=== PATIENT | female | born 1960 | race Caucasian/White ===

== ENCOUNTER → 2017-05-26 | Outpatient (CLI) | payer OTHER ==
[~2017-05-26] VITALS: Ht 166.4 cm; Wt 121.6 kg
[~2017-05-26] MED LIST: CRANBERRY PO; CYMBALTA20 MG; DESYREL100 MG PO; ESCITALOPRAM OX20 MG PO; FLONASE16 G1 BOTH NARES; FUROSEMIDE20 MG PO; HYDROXYZINE HCL25 MG PO; IMITREX100 MG PO; IMODIUM A-D2 M2 PO; LYRICA75 MG PO; METFORMIN HCL500 MG PO; MOBIC7.5 MG PO; OXYBUTYNIN CHLO10 MG PO; POTASSIUM CHLO10 ME3 PO; PRAVACHOL20 MG PO; PROCTOZONE-HC30 GM PR; SYMBICORT60 INHALA1 IH; VENTOLIN HFA18 GM IH; VICODIN ES 7.51 EAC1 PO; VITAMIN B-122500 MCG SL; VITAMIN B-6100 MG PO; XANAX1 MG; [UNRECOGNIZED DRUG - OTHER] PO
[2017-05-26 08:16] LABS: POINT-OF-CARE METER ID UU14107333
== END | disposition home or self-care (01) ==
LOC: AMB 07:19
PROVIDERS: Internal Medicine
DX: K52.9 Noninfective gastroenteritis and colitis, unspecified (principal); D12.2 Benign neoplasm of ascending colon; J44.0 Chronic obstructive pulmonary disease with (acute) lower respiratory infection; G89.29 Other chronic pain; M54.12 Radiculopathy, cervical region; E11.65 Type 2 diabetes mellitus with hyperglycemia; E78.1 Pure hyperglyceridemia; M79.89 Other specified soft tissue disorders; E66.01 Morbid (severe) obesity due to excess calories; Z87.891 Personal history of nicotine dependence; Z79.82 Long term (current) use of aspirin
CPT/HCPCS: 82948; 88305; J2250

== ENCOUNTER 2018-03-22 08:17 | Day surgery (SDC) | payer OTHER ==
[~2018-03-22] VITALS: Ht 166.4 cm; Wt 121.0 kg
== END 2018-03-22 10:15 | disposition home or self-care (01) ==
LOC: PAIN 08:17 → SDC 09:00 → PAIN 09:00
PROVIDERS: Anesthesiology Pain Medicine
DX: M47.816 Spondylosis without myelopathy or radiculopathy, lumbar region (principal); M51.36 Other intervertebral disc degeneration, lumbar region; M54.12 Radiculopathy, cervical region; M96.1 Postlaminectomy syndrome, not elsewhere classified; E66.01 Morbid (severe) obesity due to excess calories; Z68.41 Body mass index [BMI] 40.0-44.9, adult; E11.9 Type 2 diabetes mellitus without complications; J45.909 Unspecified asthma, uncomplicated; I10 Essential (primary) hypertension; Z87.891 Personal history of nicotine dependence; Z79.84 Long term (current) use of oral hypoglycemic drugs
CPT/HCPCS: 82948; J1030; J2250; S0020

== ENCOUNTER 2018-03-29 07:31 | Day surgery (SDC) | payer OTHER ==
[~2018-03-29] VITALS: Ht 166.4 cm; Wt 121.6 kg
== END 2018-03-29 09:21 | disposition home or self-care (01) ==
LOC: PAIN 07:31
PROVIDERS: Anesthesiology Pain Medicine
DX: M47.816 Spondylosis without myelopathy or radiculopathy, lumbar region (principal); M51.36 Other intervertebral disc degeneration, lumbar region; G89.29 Other chronic pain; M54.12 Radiculopathy, cervical region; E66.01 Morbid (severe) obesity due to excess calories; Z68.41 Body mass index [BMI] 40.0-44.9, adult; Z87.891 Personal history of nicotine dependence; Z88.5 Allergy status to narcotic agent
CPT/HCPCS: 82948; J1030; J2250; S0020